=== PATIENT | male | born 1995 | race Caucasian/White ===

== ENCOUNTER 2021-09-13 16:12 | Emergency (ER) | payer OTHER, SELFPAY ==
--- NOTE | 2021-09-13 16:13 | ED.DENTAL ---
HPI - Dental/Oral General Chief complaint: Dental/Oral Stated complaint: BROKEN TOOTH Time Seen by Provider: 09/13/21 16:14 Source: patient and RN notes reviewed History of Present Illness HPI Narrative: Patient is a 25-year-old male who presents the urgent care with complaints of a broken tooth. Patient states it has been broke for a few years however the pains are started approximately a week and a half ago. Patient denies any facial swelling, nausea, vomiting or fever. States that he has been using [id number] pain medication with mild relief. Patient states he does have a dentist appointment in 2 weeks. No other acute complaints. No acute distress noted. Patient aware of the plan of care. Some parts of this dictation were generated by voice recognition software and may contain typographical and/or grammatical inaccuracies. Related Data Allergies Allergy/AdvReac Type Severity Reaction Status Date / Time No Known Allergies Allergy Mild Verified 08/17/10 08:48 Review of Systems Review of Systems: CONSTITUTIONAL: Denies fever, chills, or sweats. EYES: Denies visual changes, redness, or discharge. ENT: Denies rhinorrhea, congestion, sore throat, or otalgia. Reports of left lower dental pain and swelling CARDIOVASCULAR: Denies chest pain, palpitations, or edema. RESPIRATORY: Denies cough or dyspnea. GASTROINTESTINAL: Denies abdominal pain, nausea, vomiting, or diarrhea. GENITOURINARY: Denies dysuria or hematuria. SKIN: Denies rash or itching. MUSCULOSKELETAL: Denies back pain, joint pain, or myalgia. NEUROLOGIC: Denies headache, numbness, or weakness. All other systems reviewed are negative, except as documented in HPI. PMFSH Comments At the time of my signature, I reviewed and agree with the nursing past medical, surgical, social, and family history. There is no relevant family history pertinent to the patient complaint. Exam Narrative: GENERAL: This is a well-nourished, well-developed patient, in no apparent distress. HEAD: normocephalic, atraumatic. EYES: PERRL. Sclera clear/white. Vision is grossly intact. EARS: External ears normal NOSE: External nose normal with no obvious nasal discharge, nares without redness, no rhinorrhea. THROAT: Mucous membranes moist, posterior pharynx clear. DENTAL: Mild to moderate erythema and mild edema surrounding tooth #17, impacted wisdom tooth. Carious lesion/midline fracture noted to tooth #16 with mild surrounding erythema/edema NECK: Neck supple CARDIOVASCULAR: Regular rate and rhythm without murmurs, gallops, or rubs. RESPIRATORY: Clear to auscultation. Breath sounds equal bilaterally. No wheezes, rales, or rhonchi. SKIN: warm, intact with no suspicious lesions or rash, good texture and turgor. NEURO: awake, alert, and oriented to person, place and time. There were no obvious focal neurologic abnormalities. EXTREMITIES: No clubbing, cyanosis, or edema. Course Course Level of Care: Express Care Visit Vital Signs Vital signs: Vital Signs Temperature 98.1 F 09/13/21 16:21 Pulse Rate 93 09/13/21 16:21 Respiratory Rate 16 09/13/21 16:21 Blood Pressure 127/92 H 09/13/21 16:21 Pulse Oximetry 99 09/13/21 16:21 Temperature 98.1 F 09/13/21 16:21 Pulse Rate 93 09/13/21 16:21 Respiratory Rate 16 09/13/21 16:21 Blood Pressure 127/92 H 09/13/21 16:21 Pulse Oximetry 99 09/13/21 16:21 Reviewed-patient is informed that they may have pre-hypertension or hypertension based on a blood pressure reading in the department. I recommend the patient call the primary care provider listed on their discharge instructions or a physician of their choice this week to arrange follow-up for further evaluation of possible pre-hypertension or hypertension. MDM - Dental/Oral MDM Narrative Medical decision making narrative: Advised patient complete the oral antibiotic regimen as prescribed. Use Tylenol/ibuprofen as needed for pain. Be sure to eat and drink with medicatio
[2021-09-13 16:21] VITALS: BP 127/92; PULSE 93; RESP 16; TEMP 36.7; O2SAT 99
== END 2021-09-13 16:35 | disposition home or self-care (01) ==
PROVIDERS: Emergency Provider Nurse Practitioner Family
DX: K04.7 Periapical abscess without sinus (principal)
CPT/HCPCS: 99213; G0463